=== PATIENT | male | born 1940 | race Caucasian/White ===

== ENCOUNTER 2024-12-22 08:44 | Emergency (ER) | payer OTHER, MEDICARE, SELFPAY ==
[2024-12-22 08:45] VITALS: BMI 23.0
[2024-12-22 08:59] VITALS: BP 156/80; PULSE 71; RESP 18; TEMP 36.6; O2SAT 97
--- NOTE | 2024-12-22 09:00 | XR_ITS ---
Examination: CT abdomen and pelvis without contrast. Coronal 3-D reconstructions. Sagittal 2-D reconstructions. Date and time of exam:December 22, 2024 1033 hours INDICATIONS: Right lower groin pain onset today CTDI: vol (mGy): 7.41 DLP: (mGycm): 158 Technique: Axial images of the abdomen have been obtained, 3 mm slice thickness Intravenous contrast material has not been administered. Low dose protocols were performed. One or more of the following dose reduction techniques were used; automated exposure control, adjustment of the mA and/or KV according to patient size, use of iterative reconstruction technique. Findings: No focal liver or splenic lesions Absent gallbladder No pancreatic or adrenal mass Bilateral renal calculi including large staghorn calculi left kidney, the largest in the lower pole left kidney 17 mm Poorly defined mass lateral margin right kidney 16 mm No ureteral calculi AP dimension infrarenal abdominal aorta 31 mm No bowel obstruction No pericecal inflammatory change Fat-containing inguinal hernias, the right inguinal hernia extending into the scrotal sac IMPRESSION: Poorly defined mass lateral margin right kidney 16 mm, recommend MRI abdomen kidneys follow-up pre and postcontrast Mild aneurysmal dilatation infrarenal abdominal aorta Fat-containing inguinal hernias, the right inguinal hernia extends into the scrotal sac, consider testicular sonography follow-up
--- NOTE | 2024-12-22 09:01 | PD.EDRME ---
Rapid Medical Screening Exam RME Arrival date/time: 12/22/24 08:44 84-year-old male presents emergency department for right inguinal hernia Chief Complaint: General Adult/Misc Complain Vital signs: Vital Signs Temperature 97.8 F 12/22/24 08:59 Pulse Rate 71 12/22/24 08:59 Respiratory Rate 18 12/22/24 08:59 Blood Pressure 156/80 H 12/22/24 08:59 Pulse Oximetry (%) 97 12/22/24 08:59 Oxygen Delivery Method Room Air 12/22/24 08:59
[2024-12-22 09:26] LABS: Collection Type, Urine Clean Catch
[2024-12-22 09:32] LABS: Basophils % (Auto) 1 % (0-2.5); Eosinophils # (Auto) 0.3 Thou/mm3 (0.0-0.5); Eosinophils % (Auto) 4 % (0-10); Hematocrit 38.4 % (41.0-53.0); Hemoglobin 13.2 g/dL (13.5-16.0); Immature Granulocytes % (Auto) 0 % (0-0); Immature Granulocytes Auto 0.01 Thou/mm3 (0.00-0.00); Lymphocytes # (Auto) 2.6 Thou/mm3 (1.0-4.8); Lymphocytes % (Auto) 34 % (10-50); Mean Corpuscular HGB Conc 34.4 g/dl (31.0-37.0); Mean Corpuscular Hemoglobin 30.5 pg (25.0-35.0); Mean Corpuscular Volume 89 fL (80-100); Monocytes # (Auto) 0.6 Thou/mm3 (0.0-0.8); Monocytes % (Auto) 8 % (0-12); Neutrophils # (Auto) 4.2 Thou/mm3 (1.8-7.7); Neutrophils % (Auto) 54 % (37-80); Nucleated Red Blood Cell % 0 /100 WBC (0); Platelet Count 240 Thou/mm3 (140-440); RDW Standard Deviation 41.1 fL (35.1-43.9); Red Blood Count 4.33 Miln/mm3 (4.50-5.90); White Blood Count 7.8 Thou/mm3 (3.8-10.6)
[2024-12-22 09:52] LABS: Bilirubin,Urine Negative (Negative); Blood,Urine Trace (Negative); Clarity,Urine Clear (Clear/Hazy); Color,Urine Yellow (Lt Yel-Yel); Glucose, Urine Negative (Negative); Ketones,Urine Negative (Negative); Leukocyte Esterase,Urine Positive (Negative); Nitrite,Urine Negative (Negative); PH,Urine 5.5 (5.0-7.0); Protein,Urine Negative (Neg - Trace); RBC,Urine 12 /hpf (0-3); Specific Gravity,Urine 1.025 (1.001-1.035); Squamous Epithelial Cell,Urine < 1 /hpf (0-5); Urobilinogen,Urine Negative mg/dL (0.0-1.0); WBC,Urine 17 /hpf (0-5)
[2024-12-22 09:55] LABS: Alanine Aminotransferase 17 U/L (10-49); Albumin, Serum 4.2 gm/dL (3.4-4.8); Albumin/Globulin Ratio 1.8 (1.2-2.2); Alkaline Phosphatase 83 U/L (46-116); Anion Gap 7 (7-16); Aspartate Amino Transferase 23 U/L (0-34); BUN/Creatinine Ratio 20 Ratio (12-20); Bilirubin,Total 1.1 mg/dL (0.3-1.2); Blood Urea Nitrogen 18 mg/dL (9-23); Calcium 8.6 mg/dL (8.3-10.6); Calcium (Corrected) 8.6 mg/dL (8.5-10.1); Carbon Dioxide 28.1 mMol/L (20.0-31.0); Chloride 109 mMol/L (98-107); Creatinine (Component) 0.9 mg/dL (0.6-1.3); Globulin 2.4 gm/dL (2.3-3.5); Glucose 96 mg/dL (74-106); Lipase 38 U/L (12-53); Osmolality,Calculated 288 (275-295); Potassium 4.5 mMol/L (3.4-5.1); Sodium 144 mMol/L (136-145); Total Protein 6.6 gm/dL (5.7-8.2); eGFR > 60 See Note
[2024-12-22 10:05] LABS: Culture Indicated,Urine Yes
--- NOTE | 2024-12-22 15:10 | PC.NURSE ---
LINDA MELTON AT BEDSIDE TO REDUCE HERNIA
--- NOTE | 2024-12-22 15:11 | PD.EDADULT ---
ED General RME/HPI General Chief complaint: General Adult/Misc Complain Stated complaint: HERNIA RIGHT GROIN Time Seen by Provider: 12/22/24 14:53 Arrival date/time: 12/22/24 08:44 CC: Right inguinal pain HPI ongoing for the past 3 to 4 months, states it is increased, the patient moved down here from [place] and [facility] Patient states he has been putting diclofenac cream on the inguinal area for temporary relief. Patient denies any fever chills painful urination bloody urination nausea vomiting or diarrhea. RME / HPI RME / HPI narrative: 12/22/24 08:44 84-year-old male presents emergency department for right inguinal hernia Related Data Home Medications ?Medication ?Instructions ?Recorded ?Confirmed amlodipine 10 mg tablet 10 mg PO QDAY 10/07/18 10/09/18 atorvastatin 80 mg tablet 40 mg PO QPM 10/07/18 10/09/18 gabapentin 300 mg capsule 600 mg PO TID 10/07/18 10/09/18 glipizide 10 mg tablet 20 mg PO BID 10/07/18 10/09/18 hydralazine 10 mg tablet 10 mg PO TID 10/07/18 10/09/18 hydrochlorothiazide 25 mg tablet 25 mg PO QDAY 10/07/18 10/09/18 lisinopril 40 mg tablet 40 mg PO QDAY 10/07/18 10/09/18 metformin 1,000 mg tablet 1,000 mg PO BID 10/07/18 10/09/18 metoprolol succinate 200 mg 200 mg PO QDAY 10/07/18 10/09/18 tablet,extended release 24 hr tamsulosin 0.4 mg capsule 0.4 mg PO HS 10/07/18 10/09/18 Previous Rx's ?Medication ?Instructions ?Recorded [place] 7.5 mg-325 mg tablet 1 tab PO Q4H #30 tabs 10/08/18 (hydrocodone-acetaminophen) meloxicam 7.5 mg tablet 7.5 mg PO QDAY #10 tabs 12/22/24 Allergies Allergy/AdvReac Type Severity Reaction Status Date / Time No Known Allergies Allergy Verified 12/22/24 08:46 Review of Systems Review of Systems Narrative Review of Systems: GEN: No fever, no chills, no weight loss EYES: No discharge, no visual changes, no pain HEENT: No ear pain, no congestion, no sore throat PULM: No shortness of breath, no cough, no congestion CV: No chest pain, no dyspnea on exertion, no palpitations GI: No nausea, no vomiting, no diarrhea, + pain, no constipation : No frequency, no urgency, no dysuria MUSC/SKEL: No joint pain, no back pain SKIN: No rash PSYCH: No hallucinations, no depression HEME/LYMPH: No easy bleeding or bruising tendencies NEURO: No weakness, no headache Past Medical History Past Medical History NEUROLOGIC: Negative Neurological Disorders CARDIAC: Positive Cardiac Disorders and Hypertension; Negative Congestive Heart Failure RESPIRATORY: Negative Chronic Obstructive Pulmonary Disease (COPD) or Asthma GASTROINTESTINAL: Positive Gastrointestinal Disorders and Gall Bladder Disease GENITOURINARY: Positive Genitourinary Disorders, Kidney Stones and Inguinal Hernia; Negative Renal Disease MUSCULOSKELETAL: Positive Musculoskeletal Disorders and Arthritis ENT: Positive Cataracts and Deafness ENDOCRINE: Positive Endocrine Disorders and Diabetes Mellitus Type 2; Negative Diabetes Mellitus Type 1 HEMATOLOGIC: Negative Sickle Cell Disease PSYCHO/SOCIAL: Positive Post Traumatic Stress Disorder OTHER HISTORY: Positive Chicken Pox, Measles and Mumps; Negative Autoimmune Disease Family History FAMILY HISTORY: Positive Family Respiratory Disorders, Family Cardiac Disorders and Family Cancer; Negative Family Surgery or Family Anesthesia Reaction Surgical History SURGICAL: Positive Tonsillectomy Social History SMOKING STATUS: Never smoker SECOND HAND EXPOSURE: No ED Exam Narrative Physical exam: [General: In mild discomfort but not in any acute distress Head normocephalic HEENT: Within acceptable limits Neck is supple nontender Chest equal chest rise nontender to palpation Respiratory: Clear to auscultation no wheezes crackles or rubs CV: Rate rhythm is regular no murmurs rubs or clicks Abdomen : Small outpouching in the right inguinal area old surgical scar patient informs me this was from her hernia repair when he was 4 years old. Otherwise abdomen is benign. Back: No CVA tenderness no spinous process tenderness from cervical spine thoracic and lumbar spine Skin: Intact no petechiae rash induration ulceration or crepitus Extremities: Moving all extremity against resistance cap refill less than 2 seconds neurosensory intact Neuro: Awake alert oriented x3 Glascow coma 15 no focal deficits] Course Quality Measures none Orders Category Date Time Status CT abdomen pelvis wo con Stat Exams 12/22/24 09:00 Completed CBC Stat Lab 12/22/24 09:12 Completed Comprehensive Metabolic Panel Stat Lab 12/22/24 09:12 Completed Lipase Stat Lab 12/22/24 09:12 Completed UA, C/S IF [Urinalysis, C/S if Indicated] Stat Lab 12/22/24 09:18 Completed Urine Culture Stat Lab 12/22/24 09:18 Received Vital Signs Vital signs: Vital Signs Temperature 97.8 F 12/22/24 08:59 Pulse Rate 71 12/22/24 08:59 Respiratory Rate 18 12/22/24 08:59 Blood Pressure 156/80 H 12/22/24 08:59 Pulse Oximetry (%) 97 12/22/24 08:59 Oxygen Delivery Method Room Air 12/22/24 08:59 Procedures -ED Procedure Comment Patient put in a tea bag position, attempted to reduce the hernia that extends down into the scrotum was unsuccessful in terms of pain for the patient however it felt successful by palpation. Will refer the patient out to outpatient surgery services. Discharge Plan Plan Patient Disposition: HOME (Self Care) Patient condition on transfer: Stable Prescriptions/Referrals Prescriptions/Med Rec: New meloxicam 7.5 mg tablet 7.5 mg PO QDAY Qty: 10 0RF No Action hydralazine 10 mg Tablet 10 mg PO TID tamsulosin 0.4 mg Capsule 0.4 mg PO HS hydrochlorothiazide 25 mg Tablet 25 mg PO QDAY atorvastatin 80 mg Tablet 40 mg PO QPM metoprolol succinate 200 mg Tablet Extended Release 24 Hr 200 mg PO QDAY glipizide 10 mg Tablet 20 mg PO BID amlodipine 10 mg Tablet 10 mg PO QDAY metformin 1,000 mg Tablet 1,000 mg PO BID gabapentin 300 mg Capsule 600 mg PO TID lisinopril 40 mg Tablet 40 mg PO QDAY hydrocodone-acetaminophen [[place]] 7.5-325 mg tablet 1 tab PO Q4H MDD 3 Qty: 30 0RF Referrals: No Primary/Family,Physician [Primary Care Provider] - In 1 week Loree Palacios MD [Physician] - In 1 week Problem List Clinical Impression: Inguinal hernia Patient/Caregiver Discharge Instructions Other Activity Instructions:: Where is kind of brace he continue use the cream use the medicines I have provided for temporary relief follow-[facility] with [facility] or the surgeon listed above. Education Materials: ED Hernia (Adult) Print Language: Bermudian Stand Alone Forms: Silva Award Info., Patient Portal Info Letter, Work/School Release PA/SWITCHING OPERATOR Supervising Physician PA/SWITCHING OPERATOR Supervising Physician: Rodriguez Talavera ENP
[2024-12-22 15:40] VITALS: BP 162/90; PULSE 54; RESP 18; TEMP 36.3; O2SAT 98
== END 2024-12-22 15:40 | disposition home or self-care (01) ==
PROVIDERS: Nurse Practitioner Primary Care; Emergency Provider Emergency Medicine
DX: K40.90 Unilateral inguinal hernia, without obstruction or gangrene, not specified as recurrent (principal)
CPT/HCPCS: 36415; 74176; 80053; 81001; 83690; 85025; 87086; 99284

== ENCOUNTER 2025-04-07 09:22 | Emergency (ER) | payer OTHER, SELFPAY ==
[2025-04-07 09:23] VITALS: BP 157/87; PULSE 66; RESP 18; TEMP 36.8; O2SAT 97
[2025-04-07 09:35] VITALS: PULSE 78; RESP 18; O2SAT 95
--- NOTE | 2025-04-07 09:46 | EKG_ITS ---
[facility] Test Date: 2025-04-07 Pat Name: GARCÍA COLE Department: Room: - Gender: Male Dental Scheduler: : 1940 Requested By: Oriana Oseguera Order Number: [id number] Reading MD: Oriana Oseguera Measurements Intervals [place] Rate: 58 P: -14 DC: 182 QRS: 13 QRSD: 90 T: 61 QT: 417 QTc: 411 Interpretive Statements SINUS BRADYCARDIA No previous ECG available for comparison /store/S0/[id number]
--- NOTE | 2025-04-07 09:46 | XR_ITS ---
Examination: PA lateral chest 2 views TECHNIQUE: Upright PA lateral chest 2 views Date and time: April 07, 2025 0957 hours INDICATIONS: Chest pain today. FINDINGS: Normal heart size. No pneumonia or pulmonary edema 4 mm pulmonary nodule left upper lobe The osseous structures are intact IMPRESSION: Recommend AP lordotic chest follow-up to confirm 4 mm pulmonary nodule left upper lobe
--- NOTE | 2025-04-07 09:53 | PD.EDCHEST ---
ED Chest Pain RME/HPI General Chief Complaint: General Adult/Misc Complain Stated Complaint: RIGHT SIDE CHEST PAIN Time Seen by Provider: 04/07/25 09:31 Arrival date/time: 04/07/25 09:22 Limitations: no limitations RME / HPI RME / HPI narrative: 84 year old male with history of CVA, hypertension, diabetes, hyperlipidemia presents to the ED BIBA for evaluation of right sided chest pain beginning this morning while sitting in the car. Described as aching in sensation, localized to the right chest, with radiation to right lateral chest/rib cage area and right shoulder. Rating as severe 10/10 that is aggravated with taking a deep breath. Reportedly had similar pain intermittently yesterday; however, occurring more frequently today. Medics report prehospital v/s were within normal limits: b/p 148/86, HR 70s, saturating 95% on room air. In the ED, patient states he currently has no pain and no other associated symptoms/complaints are reported. Denies fevers, chills, cough, shortness of breath, nausea, vomiting, palpitations, or leg swelling. Denies any injury/trauma or recent travel. No known cardiac hx. The caregiver mentioned the patient has been out of his Lisinopril for at least 2 weeks and has [facility] which they have yet to receive in the mail. Related Data Home Medications ?Medication ?Instructions ?Recorded ?Confirmed amlodipine 10 mg tablet 10 mg PO QDAY 10/07/18 10/09/18 atorvastatin 80 mg tablet 40 mg PO QPM 10/07/18 10/09/18 gabapentin 300 mg capsule 600 mg PO TID 10/07/18 10/09/18 glipizide 10 mg tablet 20 mg PO BID 10/07/18 10/09/18 hydralazine 10 mg tablet 10 mg PO TID 10/07/18 10/09/18 hydrochlorothiazide 25 mg tablet 25 mg PO QDAY 10/07/18 10/09/18 lisinopril 40 mg tablet 40 mg PO QDAY 10/07/18 10/09/18 metformin 1,000 mg tablet 1,000 mg PO BID 10/07/18 10/09/18 metoprolol succinate 200 mg 200 mg PO QDAY 10/07/18 10/09/18 tablet,extended release 24 hr tamsulosin 0.4 mg capsule 0.4 mg PO HS 10/07/18 10/09/18 Previous Rx's ?Medication ?Instructions ?Recorded [place] 7.5 mg-325 mg tablet 1 tab PO Q4H #30 tabs 10/08/18 (hydrocodone-acetaminophen) meloxicam 7.5 mg tablet 7.5 mg PO QDAY #10 tabs 12/22/24 lisinopril 20 mg tablet 20 mg PO QDAY #7 tabs 04/07/25 Allergies Allergy/AdvReac Type Severity Reaction Status Date / Time No Known Allergies Allergy Verified 12/22/24 08:46 Review of Systems Review of Systems Systems Reviewed: All systems reviewed, normal except as documented Past Medical History Past Medical History CARDIAC: Positive Cardiac Disorders and Hypertension GASTROINTESTINAL: Positive Gastrointestinal Disorders and Gall Bladder Disease GENITOURINARY: Positive Genitourinary Disorders, Kidney Stones and Inguinal Hernia MUSCULOSKELETAL: Positive Musculoskeletal Disorders and Arthritis ENT: Positive Cataracts and Deafness ENDOCRINE: Positive Endocrine Disorders and Diabetes Mellitus Type 2 PSYCHO/SOCIAL: Positive Post Traumatic Stress Disorder OTHER HISTORY: Positive Chicken Pox, Measles and Mumps Family History FAMILY HISTORY: Positive Family Respiratory Disorders, Family Cardiac Disorders and Family Cancer; Negative Family Surgery or Family Anesthesia Reaction Surgical History SURGICAL: Positive Tonsillectomy Social History SMOKING STATUS: Never smoker SECOND HAND EXPOSURE: No ED Exam General Limitations: Present no limitations General appearance: Present alert and in no apparent distress Head Head exam: Present atraumatic and normocephalic Eye Eye exam: Present normal appearance, PERRL and EOMI ENT ENT exam: Present normal exam, normal oropharynx and mucous membranes moist Neck Neck exam: Present normal inspection, full ROM and trachea midline Chest Chest inspection: Present normal inspection and symmetric chest wall rise Respiratory Respiratory exam: Present normal lung sounds bilaterally Cardiovascular Cardiovascular exam: Present regular rate, normal rhythm and normal heart sounds Abdominal Exam Abdominal exam: Present soft and normal bowel sounds Extremities Exam Extremities exam: Present normal inspection and full ROM Back Exam Back exam: Present normal inspection and full ROM Neurological Exam Neurological exam: Present alert, oriented X3 and CN II-XII intact Psychiatric Psychiatric exam: Present normal affect and normal mood Skin Skin exam: Present warm, dry, intact and normal color Course Quality Measures none Orders Category Date Time Status EKG (ED ONLY) *Do not use* NOW Care 04/07/25 09:46 Completed CXR2 [XR chest 2V] Stat Exams 04/07/25 09:46 Completed EKG (ED Only) Stat Exams 04/07/25 09:46 Draft BNP [B-Type Natriuretic Peptide] Stat Lab 04/07/25 09:54 Completed CBC Stat Lab 04/07/25 09:54 Completed CMP [Comprehensive Metabolic Panel] Stat Lab 04/07/25 09:54 Completed Lipase Stat Lab 04/07/25 09:54 Completed Troponin I Stat Lab 04/07/25 09:54 Completed Troponin I Stat Lab 04/07/25 12:24 Completed Aspirin Chew Med 04/07/25 09:46 Discontinued 81 mg PO X1 ONE Vital Signs Vital signs: Vital Signs Temperature 98.2 F 04/07/25 09:23 Pulse Rate 66 04/07/25 09:23 Respiratory Rate 18 04/07/25 09:23 Blood Pressure 157/87 H 04/07/25 09:23 Pulse Oximetry (%) 97 04/07/25 09:23 Oxygen Delivery Method Room Air 04/07/25 09:23 Pulse ox is 97% on room air which is adequate. Chest Pain MDM Narrative MDM Narrative:: Patient is an 84-year-old male with medical history notable for hypertension, prior stroke without any residual deficits, chronic back pain that send emerged from concerns for acute onset right-sided chest pain. Concern for ACS arrhythmia electrolyte abnormality viral syndrome pneumonia among others. Patient with symmetric pupils bilateral upper extremities intact, no pain that radiates to his back at this time less likely pulmonary embolus, aortic dissection. Patient without any abdominal pain, less likely AAA. Ordered labs, chest x-ray, as well as other medication for symptom relief. EKG performed April 07, 2025 at 1016, notable for heart rate 58, sinus rhythm, normal intervals, nonspecific T wave changes, not a cardiac alert Labs without acute hematologic or significant metabolic abnormality, troponin not elevated on 2 different substance. EKG without evidence of ischemia or arrhythmia, chest x-ray with evidence of pulmonary nodule. Patient is breathing room air not in respiratory distress. Patient on multiple reevaluations hemodynamically stable not distress symptoms improved. Discharged home close return precautions follow-up with primary doctor as well as a recommendation to get a stress test as an outpatient. 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 Social determinants that could affect healthcare access:: none Patient has the following chronic illnesses:: CVA, hypertension, diabetes, hyperlipidemia How is presenting disease/condition affected by chronic disease/condition?: exacerbated by Evaluation data The following diagnostics were reviewed and interpreted by me:: lab results, radiology exam(s) and EKG tracing(s) Lab and/or radiology exams considered but not ordered:: None Interpretation Summary: Ordering Physician: Oriana Black MD Date of Service: 04/07/25 Procedure(s): XR chest 2V Accession Number(s): [id number] cc: José Miguel Joshi MD; Oriana Black MD~ Examination: PA lateral chest 2 views TECHNIQUE: Upright PA lateral chest 2 views Date and time: April 07, 2025 0957 hours INDICATIONS: Chest pain today. FINDINGS: Normal heart size. No pneumonia or pulmonary edema 4 mm pulmonary nodule left upper lobe The osseous structures are intact IMPRESSION: Recommend AP lordotic chest follow-up to confirm 4 mm pulmonary nodule left upper lobe Dictated By: José Miguel Joshi MD Signed By: <Electronically signed by José Miguel Joshi MD in OV> 04/07/25 1012 Medications / Prescriptions Medications or Prescriptions considered but not ordered:: None Medication administrations:: Medication Administration History Discontinued Medications Aspirin (Aspirin 81 Mg Chew) 81 mg PO X1 ONE Stop: 04/07/25 09:47 Last Admin: 04/07/25 10:48 Dose: 81 mg Documented By: IZZY See above Consultations Consultation(s) initiated? (list below): No Diagnosis Chest Pain Differential Diagnosis: pneumothorax, stable angina, atypical chest pain, st elevation myocardial infarction, costochondritis, chest pain and biliary colic Most likely diagnosis given after review of the tests above:: Chest pain Pulmonary nodule Admission Indicated Admission indicated?: not indicated Admission Request Was there a request for admission?: No Disposition Plan Disposition Plan: Discharge Discharge Attestation Discharge Attestation: The patient and all family members were given an opportunity to ask questions and understood the discharge instructions. Discharge instructions specifically effects, indications for sooner follow up or return to the emergency department, and the expected course of current diagnosis. Patient condition: Stable Discharge Plan Plan Patient Disposition: HOME (Self Care) Prescriptions/Referrals Prescriptions/Med Rec: New lisinopril 20 mg tablet 20 mg PO QDAY Qty: 7 0RF No Action hydralazine 10 mg Tablet 10 mg PO TID tamsulosin 0.4 mg Capsule 0.4 mg PO HS hydrochlorothiazide 25 mg Tablet 25 mg PO QDAY atorvastatin 80 mg Tablet 40 mg PO QPM metoprolol succinate 200 mg Tablet Extended Release 24 Hr 200 mg PO QDAY glipizide 10 mg Tablet 20 mg PO BID amlodipine 10 mg Tablet 10 mg PO QDAY metformin 1,000 mg Tablet 1,000 mg PO BID gabapentin 300 mg Capsule 600 mg PO TID lisinopril 40 mg Tablet 40 mg PO QDAY hydrocodone-acetaminophen [[place]] 7.5-325 mg tablet 1 tab PO Q4H MDD 3 Qty: 30 0RF meloxicam 7.5 mg tablet 7.5 mg PO QDAY Qty: 10 0RF Problem List Clinical Impression: Chest pain, Pulmonary nodule Patient/Caregiver Discharge Instructions Education Materials: ED Chest Pain, Uncertain Cause Additional Instructions: Please follow-up with department care doctor and discuss your symptoms from today. Your cardiac enzyme EKG and chest x-ray were unremarkable. It is important to get a stress test as an outpatient. Print Language: Amharic Stand Alone Forms: Silva Award Info., Patient Portal Info Letter
[2025-04-07 10:04] LABS: Basophils # (Auto) 0.0 Thou/mm3 (0.0-0.2); Basophils % (Auto) 1 % (0-2.5); Eosinophils # (Auto) 0.2 Thou/mm3 (0.0-0.5); Eosinophils % (Auto) 3 % (0-10); Hematocrit 40.4 % (41.0-53.0); Hemoglobin 13.3 g/dL (13.5-16.0); Immature Granulocytes Auto 0.03 Thou/mm3 (0.00-0.00); Lymphocytes # (Auto) 2.2 Thou/mm3 (1.0-4.8); Lymphocytes % (Auto) 31 % (10-50); Mean Corpuscular HGB Conc 32.9 g/dl (31.0-37.0); Mean Corpuscular Hemoglobin 29.2 pg (25.0-35.0); Mean Corpuscular Volume 89 fL (80-100); Monocytes # (Auto) 0.6 Thou/mm3 (0.0-0.8); Monocytes % (Auto) 8 % (0-12); Neutrophils # (Auto) 4.0 Thou/mm3 (1.8-7.7); Neutrophils % (Auto) 57 % (37-80); Nucleated Red Blood Cell # 0.00 Thou/mm3 (0.00-0.00); Nucleated Red Blood Cell % 0 /100 WBC (0); Platelet Count 210 Thou/mm3 (140-440); RDW Standard Deviation 43.4 fL (35.1-43.9); Red Blood Count 4.55 Miln/mm3 (4.50-5.90); White Blood Count 7.0 Thou/mm3 (3.8-10.6)
[2025-04-07 10:22] LABS: Alanine Aminotransferase 10 U/L (10-49); Albumin, Serum 4.0 gm/dL (3.4-4.8); Albumin/Globulin Ratio 1.8 (1.2-2.2); Alkaline Phosphatase 81 U/L (46-116); Anion Gap 8 (7-16); Aspartate Amino Transferase 22 U/L (0-34); BUN/Creatinine Ratio 18 Ratio (12-20); Bilirubin,Total 0.7 mg/dL (0.3-1.2); Blood Urea Nitrogen 14 mg/dL (9-23); Calcium 9.2 mg/dL (8.3-10.6); Calcium (Corrected) 9.2 mg/dL (8.5-10.1); Carbon Dioxide 26.4 mMol/L (20.0-31.0); Chloride 110 mMol/L (98-107); Creatinine (Component) 0.8 mg/dL (0.6-1.3); Globulin 2.2 gm/dL (2.3-3.5); Glucose 119 mg/dL (74-106); Lipase 27 U/L (12-53); Osmolality,Calculated 288 (275-295); Potassium 4.0 mMol/L (3.4-5.1); Sodium 144 mMol/L (136-145); Total Protein 6.2 gm/dL (5.7-8.2); Troponin I < 0.020 ng/mL (0.0-0.045); eGFR > 60 See Note
[2025-04-07 10:34] LABS: B-Type Natriuretic Peptide 215 pg/mL (0-100)
[2025-04-07] MEDS: ASPIRIN 81 MG CHEW PO (10:48)
[2025-04-07 13:07] LABS: Troponin I 0.022 ng/mL (0.0-0.045)
[2025-04-07 13:24] VITALS: BP 158/89; PULSE 98; RESP 18; TEMP 36.6; O2SAT 97
== END 2025-04-07 13:50 | disposition home or self-care (01) ==
PROVIDERS: Emergency Provider Emergency Medicine
DX: R07.89 Other chest pain (principal); R91.1 Solitary pulmonary nodule; I10 Essential (primary) hypertension; E11.9 Type 2 diabetes mellitus without complications; E78.5 Hyperlipidemia, unspecified
CPT/HCPCS: 36415; 71046; 80053; 83690; 83880; 84484; 85025; 93005; 99283; A9270

== ENCOUNTER 2025-04-11 20:54 | Emergency (ER) | payer OTHER, SELFPAY ==
[2025-04-11 20:56] VITALS: PULSE 72; RESP 18; O2SAT 98; BMI 27.3
--- NOTE | 2025-04-11 21:06 | EKG_ITS ---
[facility] Test Date: 2025-04-11 Pat Name: GARCÍA COLE Department: Room: - Gender: Male Psychiatric Registered Nurse: : 1940 Requested By: ED Temporary Provider Order Number: [id number] Reading MD: ED Temporary Provider Measurements Intervals [place] Rate: 69 P: 4 MA: 184 QRS: 37 QRSD: 82 T: 48 QT: 369 QTc: 396 Interpretive Statements SINUS RHYTHM Compared to ECG 04/07/2025 10:16:20 Sinus bradycardia no longer present /[id number]/S0/[id number]
--- NOTE | 2025-04-11 21:15 | PD.EDCHEST ---
ED Chest Pain RME/HPI General Chief Complaint: Chest Pain Stated Complaint: CHESTWALL PAIN Arrival date/time: 04/11/25 20:54 RME / HPI RME / HPI narrative: Dr. Zepeda?s Main ED Evaluation: 84yo male with a history of HTN, HLD BIBA from home presents to the ED for a chief complaint of right-sided chest pain x 2000. No radiation or migration. Patient is unable to describe his pain, stating it just hurts . Denies any other associated symptoms. 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 NKA. Related Data Home Medications ?Medication ?Instructions ?Recorded ?Confirmed amlodipine 10 mg tablet 10 mg PO QDAY 10/07/18 10/09/18 atorvastatin 80 mg tablet 40 mg PO QPM 10/07/18 10/09/18 gabapentin 300 mg capsule 600 mg PO TID 10/07/18 10/09/18 glipizide 10 mg tablet 20 mg PO BID 10/07/18 10/09/18 hydralazine 10 mg tablet 10 mg PO TID 10/07/18 10/09/18 hydrochlorothiazide 25 mg tablet 25 mg PO QDAY 10/07/18 10/09/18 lisinopril 40 mg tablet 40 mg PO QDAY 10/07/18 10/09/18 metformin 1,000 mg tablet 1,000 mg PO BID 10/07/18 10/09/18 metoprolol succinate 200 mg 200 mg PO QDAY 10/07/18 10/09/18 tablet,extended release 24 hr tamsulosin 0.4 mg capsule 0.4 mg PO HS 10/07/18 10/09/18 Previous Rx's ?Medication ?Instructions ?Recorded [place] 7.5 mg-325 mg tablet 1 tab PO Q4H #30 tabs 10/08/18 (hydrocodone-acetaminophen) meloxicam 7.5 mg tablet 7.5 mg PO QDAY #10 tabs 12/22/24 lisinopril 20 mg tablet 20 mg PO QDAY #7 tabs 04/07/25 Allergies Allergy/AdvReac Type Severity Reaction Status Date / Time No Known Allergies Allergy Verified 12/22/24 08:46 Review of Systems Review of Systems Systems Reviewed: All systems reviewed, normal except as documented Past Medical History Past Medical History NEUROLOGIC: Negative Neurological Disorders CARDIAC: Positive Cardiac Disorders and Hypertension; Negative Congestive Heart Failure RESPIRATORY: Negative Chronic Obstructive Pulmonary Disease (COPD) or Asthma GASTROINTESTINAL: Positive Gastrointestinal Disorders and Gall Bladder Disease GENITOURINARY: Positive Genitourinary Disorders, Kidney Stones and Inguinal Hernia; Negative Renal Disease MUSCULOSKELETAL: Positive Musculoskeletal Disorders and Arthritis ENT: Positive Cataracts and Deafness ENDOCRINE: Positive Endocrine Disorders and Diabetes Mellitus Type 2; Negative Diabetes Mellitus Type 1 HEMATOLOGIC: Negative Sickle Cell Disease PSYCHO/SOCIAL: Positive Post Traumatic Stress Disorder OTHER HISTORY: Positive Chicken Pox, Measles and Mumps; Negative Autoimmune Disease Family History FAMILY HISTORY: Positive Family Respiratory Disorders, Family Cardiac Disorders and Family Cancer; Negative Family Surgery or Family Anesthesia Reaction Surgical History SURGICAL: Positive Tonsillectomy Social History SMOKING STATUS: Never smoker SECOND HAND EXPOSURE: No ED Exam Narrative Physical exam: Generally patient is alert and in no obvious distress, heart regular rate and rhythm, lungs clear to auscultation equal bilaterally, chest shows no tenderness to palpation, extremities show no edema and no asymmetric swelling, skin is cool pale and dry, neurologic exam [place] Coma Scale is 15 without focal motor deficits. Course Course Course Narrative: CXR is ordered for determining the etiology of chest pain. Quality Measures none Orders Category Date Time Status EKG (ED ONLY) *Do not use* NOW Care 04/11/25 21:06 Completed EKG (ED Only) Stat Exams 04/11/25 21:06 Draft XR chest 1V portable Stat Exams 04/11/25 21:23 Completed BMP [Basic Metabolic Panel] Stat Lab 04/11/25 21:25 Completed CBC Stat Lab 04/11/25 21:25 Completed Troponin I Stat Lab 04/11/25 21:25 Completed Troponin I Stat Lab 04/11/25 22:51 Completed Vital Signs Vital signs: Vital Signs Temperature 97.9 F 04/11/25 21:17 Pulse Rate 71 04/11/25 21:17 Respiratory Rate 17 04/11/25 21:17 Blood Pressure 176/104 H 04/11/25 21:17 Pulse Oximetry (%) 96 04/11/25 21:17 Oxygen Delivery Method Room Air 04/11/25 21:17 Chest Pain MDM Narrative MDM Narrative:: Scribe Attestation: 04/11/25 Dorene Dunn am scribing for and in the presence of Dr. Zepeda. 2 separate troponins are not elevated including a troponin drawn greater than 3 hours from the onset of pain. Chest x-ray is normal. EKG is nonischemic. Patient is chest pain-free at time of discharge. Heart score is 3. Patient is a follow-up with primary care for cardiology referral. This is right sided chest pain however that could still be cardiac in origin. Patient is return to the emergency room as needed or if condition worsens such as increased severity of pain or if pain starts to last longer or become more frequent. I interpreted all labs. Patient data External records reviewed:: [facility] previous records (Per chart review, patient was seen here on 04/07/25 for chest pain.) and EMS form Clinical information provided by:: patient Social determinants that could affect healthcare access:: none Patient has the following chronic illnesses:: DM, HTN How is presenting disease/condition affected by chronic disease/condition?: uneffected by Evaluation data The following diagnostics were reviewed and interpreted by me:: lab results, radiology exam(s) and EKG tracing(s) Lab and/or radiology exams considered but not ordered:: none Interpretation Summary: [facility] Report Signed Patient: GARCÍA COLE [facility]. Record#: [id number] Birthdate: 1940 Age/Sex: 84 / M Location: [facility] Attending Dr: Ordering Physician: Osmin Zepeda DO Date of Service: 04/11/25 Procedure(s): XR chest 1V portable Accession Number(s): [id number] cc: José Miguel Joshi MD; NO PRIMARY/FAMILY,PHYSICIAN; Osmin Zepeda DO~ Examination: AP chest single view Technique AP portable upright chest single view Date and time: April 11, 2025 2130 hours INDICATIONS: Chest pain today. FINDINGS: Normal heart size. Lungs are clear. The osseous structures are intact. IMPRESSION: No active disease. Dictated By: José Miguel Joshi MD Signed By: <Electronically signed by José Miguel Joshi MD in > 04/11/25 [id number] Medications / Prescriptions Medications or Prescriptions considered but not ordered:: none Medication administrations:: none Consultations Consultation(s) initiated? (list below): No Diagnosis Chest Pain Differential Diagnosis: atypical chest pain, st elevation myocardial infarction, costochondritis, chest pain and other (NSTEMI, musculoskeletal pain) Most likely diagnosis given after review of the tests above:: see clinical impression below Admission Indicated Admission indicated?: not indicated Explain why admission is indicated or not indicated:: With no condition needing emergent intervention, there was no indication for admission. Admission Request Was there a request for admission?: No Disposition Plan Disposition Plan: Discharge Discharge Attestation Discharge Attestation: The patient and all family members were given an opportunity to ask questions and understood the discharge instructions. Discharge instructions specifically effects, indications for sooner follow up or return to the emergency department, and the expected course of current diagnosis. Patient condition: Stable Discharge Plan Plan Patient Disposition: HOME (Self Care) Prescriptions/Referrals Prescriptions/Med Rec: No Action hydralazine 10 mg Tablet 10 mg PO TID tamsulosin 0.4 mg Capsule 0.4 mg PO HS hydrochlorothiazide 25 mg Tablet 25 mg PO QDAY atorvastatin 80 mg Tablet 40 mg PO QPM metoprolol succinate 200 mg Tablet Extended Release 24 Hr 200 mg PO QDAY glipizide 10 mg Tablet 20 mg PO BID amlodipine 10 mg Tablet 10 mg PO QDAY metformin 1,000 mg Tablet 1,000 mg PO BID gabapentin 300 mg Capsule 600 mg PO TID lisinopril 40 mg Tablet 40 mg PO QDAY hydrocodone-acetaminophen [[place]] 7.5-325 mg tablet 1 tab PO Q4H MDD 3 Qty: 30 0RF meloxicam 7.5 mg tablet 7.5 mg PO QDAY Qty: 10 0RF lisinopril 20 mg tablet 20 mg PO QDAY Qty: 7 0RF Referrals: No Primary/Family,Physician [Primary Care Provider] - In 1 week Problem List Clinical Impression: Chest pain Patient/Caregiver Discharge Instructions Education Materials: ED Chest Pain, Uncertain Cause Additional Instructions: Continue current medications. You may take 1 baby aspirin per day. Follow-up with your doctor for cardiology referral. Return to ER if pain becomes more severe or more frequent or starts to last longer. Print Language: Belgian Stand Alone Forms: [facility] Award Info., Patient Portal Info Letter
[2025-04-11 21:17] VITALS: BP 176/104; PULSE 71; RESP 17; TEMP 36.6; O2SAT 96
[2025-04-11 21:21] VITALS: PULSE 61
--- NOTE | 2025-04-11 21:23 | XR_ITS ---
Examination: AP chest single view Technique AP portable upright chest single view Date and time: April 11, 2025 2130 hours INDICATIONS: Chest pain today. FINDINGS: Normal heart size. Lungs are clear. The osseous structures are intact. IMPRESSION: No active disease.
[2025-04-11 21:31] LABS: Basophils # (Auto) 0.0 Thou/mm3 (0.0-0.2); Basophils % (Auto) 1 % (0-2.5); Eosinophils # (Auto) 0.3 Thou/mm3 (0.0-0.5); Eosinophils % (Auto) 4 % (0-10); Hematocrit 39.1 % (41.0-53.0); Hemoglobin 13.0 g/dL (13.5-16.0); Immature Granulocytes Auto 0.02 Thou/mm3 (0.00-0.00); Lymphocytes # (Auto) 3.0 Thou/mm3 (1.0-4.8); Lymphocytes % (Auto) 41 % (10-50); Mean Corpuscular HGB Conc 33.2 g/dl (31.0-37.0); Mean Corpuscular Hemoglobin 29.3 pg (25.0-35.0); Mean Corpuscular Volume 88 fL (80-100); Monocytes # (Auto) 0.6 Thou/mm3 (0.0-0.8); Monocytes % (Auto) 8 % (0-12); Neutrophils # (Auto) 3.5 Thou/mm3 (1.8-7.7); Neutrophils % (Auto) 47 % (37-80); Nucleated Red Blood Cell # 0.00 Thou/mm3 (0.00-0.00); Nucleated Red Blood Cell % 0 /100 WBC (0); Platelet Count 204 Thou/mm3 (140-440); RDW Standard Deviation 43.7 fL (35.1-43.9); Red Blood Count 4.44 Miln/mm3 (4.50-5.90); White Blood Count 7.5 Thou/mm3 (3.8-10.6)
[2025-04-11 21:49] LABS: Anion Gap 10 (7-16); BUN/Creatinine Ratio 13 Ratio (12-20); Blood Urea Nitrogen 13 mg/dL (9-23); Calcium 9.4 mg/dL (8.3-10.6); Carbon Dioxide 24.4 mMol/L (20.0-31.0); Chloride 111 mMol/L (98-107); Creatinine (Component) 1.0 mg/dL (0.6-1.3); Estimated Creatinine Clearance 60.7 mL/min (>60); Glucose 152 mg/dL (74-106); Osmolality,Calculated 291 (275-295); Potassium 3.7 mMol/L (3.4-5.1); Sodium 145 mMol/L (136-145); Troponin I < 0.020 ng/mL (0.0-0.045); eGFR > 60 See Note
[2025-04-11 23:25] LABS: Troponin I < 0.020 ng/mL (0.0-0.045)
[2025-04-11 23:54] VITALS: BP 151/83; PULSE 71; RESP 16; O2SAT 96
== END 2025-04-11 23:45 | disposition home or self-care (01) ==
PROVIDERS: Emergency Provider Emergency Medicine
DX: R07.89 Other chest pain (principal); E78.5 Hyperlipidemia, unspecified; I10 Essential (primary) hypertension
CPT/HCPCS: 36415; 71045; 80048; 84484; 85025; 93005; 99283